=== PATIENT | male | born 1980 | race Caucasian/White ===

== ENCOUNTER 2022-02-13 21:42 | Emergency (ER) | payer OTHER, SELFPAY ==
--- NOTE | ~2022-02-13 | CT_ITS ---
EXAMINATION: CT abdomen pelvis w con DATE: 02/14/2022 00:42 INDICATION: Epigastric abdominal pain, vomiting TECHNIQUE: Computed tomography (CT) of the abdomen and pelvis was performed with 100 CC Omnipaque 350 intravenous contrast. Automated exposure control and iterative reconstruction technique were employe d. Exam dose: 1573.64 mGy-cm total exam DLP. COMPARISON: None. FINDINGS: There calcified pulmonary granulomas in the lower lobes and calcified splenic granulomas, c onsistent with old granulomatous disease. The lung bases are clear of infiltrate or consolidation. Normal heart size. No pericardial or pleural effusion. There is hepatic steatosis. No hepatic or splenic space-occupying mass lesion or splenomegaly. There is very prominent thickening/edema of the gallbladder wall. There is approximately 2 cm stone a t the gallbladder neck. Findings are consistent with acute cholecystitis. The pancreas is unremarkable, without mass lesion or calcification or ductal dilatation. No bile duct dilatation. Bilateral adrenal gland calcifications. No renal mass lesion or urinary tract calculus or hydroureteronephrosis. The urinary bladder and pros garzon gland are unremarkable. No bowel obstruction or intraperitoneal free air. Normal caliber of the abdominal aorta. No intraperitoneal or retroperitoneal or pelvic mass lesion or adenopathy or ascites. Small fat-containing inguinal hernia. Diffuse idiopathic skeletal hyperostosis of the thoracic spine. Moderate degenerative disc disease at L5-S1. Bilateral hip osteoarthritis. No suspicious osteolytic or osteoblastic lesions are noted. IMPRESSION: 2 cm gallstone in gallbladder neck and prominent gallbladder wall thickening/edema, cons istent with acute cholecystitis Hepatic steatosis Bilateral adrenal gland calcifications Reviewed, dictated and finalized at [facility]. Reviewed, dictated and finalized at [facility]. IMPRESSION: 2 cm gallstone in gallbladder neck and prominent gallbladder wall thickening/edema, consistent with acute cholecystitis Hepatic steatosis Bilateral adrenal gland calcifications
[2022-02-13 22:06] VITALS: BP 148/93; PULSE 95; RESP 16; TEMP 36.1; O2SAT 100
--- NOTE | 2022-02-13 22:21 | ED.ABDPAIN ---
HPI - Abdominal Pain General Chief Complaint: Abdominal Pain Stated Complaint: stomach pain, vomiting Time Seen by Provider: 02/13/22 22:21 Source: patient History of Present Illness HPI narrative: 41-year-old male, smoker presents to the ER with 5 hour history of -- epigastric pain. The pain started he had cinnamon and milk. has had prior episodes of epigastric pain. -- Had 4 episodes of vomiting. Vomitus contained brown material. No hematemesis no melena no diarrhea no fever Uses this NSAIDS /ibuprofen on a regular basis. MD elicited complaint: abdominal pain Pertinent past history: none Onset (ago): hour(s) ( Started 5 hours ago) Pain Consistency: constant Location: epigastric Severity: moderate Quality: aching Radiation: epigastric Migration to: no migration Exacerbating factors: nothing Relieving factors: nothing Associated symptoms: denies other symptoms Related Data Home Medications Medication Instructions Recorded Confirmed No Home Medications 02/13/22 02/13/22 Allergies Allergy/AdvReac Type Severity Reaction Status Date / Time Penicillins Allergy Swelling Verified 02/13/22 22:16 Review of Systems Review of Systems: All systems reviewed & are unremarkable except as noted in HPI and below Constitutional: Constitutional: Reports as per HPI and Reports no additional constitutional complaints Eyes: Eyes: Reports as per HPI and Reports no additional eye complaints ENT: Reports system reviewed and no additional complaints, except as documented and Reports as per HPI Cardiovascular: Cardiovascular: Reports as per HPI and Reports no additional cardiovascular complaints Respiratory: Respiratory: Reports as per HPI and Reports no additional respiratory complaints Gastrointestinal: Gastrointestinal: Reports as per HPI, Reports no additional gastrointestinal complaints, Reports abdominal pain and Reports vomiting Comments: epigastric pain Genitourinary: Genitourinary: Reports no additional male genitourinary complaints and Reports as per HPI Musculoskeletal: Musculoskeletal: Reports no additional musculoskeletal complaints and Reports as per HPI Integumentary/Breasts: Skin/Breast: Reports system reviewed and no additional complaints, except as docu and Reports as per HPI Neurologic: Reports system reviewed and no additional complaints, except as documented and Reports as per HPI Psychiatric: Psychiatric: Reports no additional psychiatric complaints and Reports as per HPI Endocrine: Endocrine: Reports no additional endocrine complaints and Reports as per HPI Hematologic/Lymphatic: Hematologic/Lymphatic: Reports no additional hematologic/lymphatic complaints and Reports as per HPI Allergic/Immunologic: Allergic/Immunologic: Reports no additional allergic/immunologic complaints and Reports as per HPI Exam Const: General: no acute distress and alert Orientation/consciousness: patient oriented x3 HENMT: Head: normal to inspection Ears: external ears normal Face and sinus: normal facial exam Mouth: Yes lip normal and Yes moist mucous membranes Eyes: Conjunctivae: conjunctivae normal Pupils: Equal, round and reactive pupils present EOM: EOMs intact bilaterally Neck: Neck: normal visual inspection, no lymphadenopathy and no meningeal signs Chest: Chest palpation & inspection: normal inspection of the chest Resp: Effort & Inspection: normal respiratory effort Auscultation: clear to auscultation bilaterally Cardio: Rate: regular rate Rhythm: regular rhythm GI: GI Palp: Yes Soft to palpation : General: Yes no CVA tenderness Testes: Testes normal Back/Spine/Pelvis: Back: no CVA tenderness Skin: General skin exam: normal color and jaundice Rashes: no rashes Neuro: General: patient oriented x3 and moves all extremities Extrem: General: normal to inspection and no pedal edema Psych: Appearance: grossly normal Mental Status: mental status grossly normal Affect: normal affect T
[2022-02-13 22:30] VITALS: BP 138/88; PULSE 88; RESP 16; O2SAT 98
--- NOTE | 2022-02-13 22:30 | ECG_ITS ---
Measurements Intervals [place] Rate: 87 P: 44 WA: 157 QRS: -4 QRSD: 106 T: 34 QT: 386 QTc: 466 Interpretive Statements SINUS RHYTHM POSSIBLE LEFT VENTRICULAR HYPERTROPHY MINIMAL Q WAVES- HIGH LATERAL LEADS BORDERLINE T WAVE ABNORMALITY- ANT/INF LEADS BASELINE ARTIFACT- II, III, AVL, AVF BORDERLINE ECG Electronically Signed On 02-14-2022 6:52:39 CDT by Philip Nelson D.O.
[2022-02-13 22:43] LABS: Basophils Absolute Auto 0.04 K/mm3 (0.00-0.10); Basophils Percent Auto 0.3 % (0.0-1.0); Eosinophils Absolute Auto 0.01 K/mm3 (0.02-0.50); Eosinophils Percent Auto 0.1 % (1.0-6.0); Hematocrit 47.7 % (40.0-54.0); Hemoglobin 16.3 g/dL (14.0-18.0); Immature Granulocyte Percent A 0.6 % (0.0-0.0); Lymphocytes Absolute Auto 1.44 K/mm3 (1.10-4.50); Mean Corpuscular HGB Conc 34.2 g/dL (32.0-36.0); Mean Corpuscular Hemoglobin 29.4 pg (27.0-31.0); Mean Corpuscular Volume 86.1 fL (78.0-102.0); Mean Platelet Volume 9.8 fl (8.7-11.0); Monocytes Percent Auto 4.4 % (2.0-11.0); Neutrophils Absolute Auto 13.7 K/mm3 (1.7-7.2); Neutrophils Percent Auto 85.6 % (50.0-70.0); Platelet Count Result 357 K/mm3 (150-420); Red Blood Count 5.54 M/mm3 (4.70-6.10); Red Cell Distribution Width 11.9 % (11.6-14.4)
[2022-02-13 23:00] LABS: Alanine Aminotransferase 50 U/L (16-63); Albumin Level 3.8 g/dL (3.4-5.0); Alkaline Phosphatase 106 U/L (46-116); Anion Gap 7 mmol/L (8-16); Aspartate Amino Transferase 23 U/L (15-37); Bilirubin,Total 1.1 mg/dL (0.00-1.00); Blood Urea Nitrogen 11 mg/dL (7-18); Calcium 9.4 mg/dL (8.5-10.1); Carbon Dioxide 27 mmol/L (21-32); Chloride 100 mmol/L (98-108); Estimated CRCL calculation 152 ml/min; Estimated Glomerular Filt Rate > 60; Glucose 125 mg/dL (70-99); Lipase 91 U/L (73-393); Osmolality Calculated 278 mOsm/kg (285-295); Potassium 3.9 mmol/L (3.5-5.1); Sodium 134 mmol/L (136-145); Total Protein 8.2 g/dL (6.4-8.2); Troponin I 12.1 ng/L (0.00-60.4)
[2022-02-13 23:02] LABS: Lactic Acid Reflex 1.1 mmol/L (0.4-2.0)
--- NOTE | 2022-02-13 23:12 | PC.NURSE ---
PT IS CURRENTLY RESTING ON STRETCHER, URINAL PROVIDED. PT DENIES ANY NEEDS OR COMPLAINTS. WILL CONTINUE TO MONITOR.
[2022-02-13 23:15] VITALS: BP 135/81; PULSE 80; RESP 16; O2SAT 100
[2022-02-13 23:21] LABS: Add Urine Microscopic? YES; Appearance Urine Cloudy (Clear); Bilirubin Urine Negative (Negative); Blood Urine Negative (Negative); Color Urine Yellow (Yellow); Glucose Urine UA Negative (Negative); Ketones Urine Negative (Negative); Leukocyte Esterase Ur Negative (Negative); Nitrate Urine Negative (Negative); Protein Urine Negative (Negative); Specific Grav Ur 1.015 (1.010-1.020)
[2022-02-13 23:26] LABS: Amorphous Sediment Urine Heavy; Bacteria Urine Trace /hpf; RBC Urine 0-2 /hpf (0-2); Squamous Epithelial Cell Urine Rare /hpf (Few); WBC Urine 0-3 /hpf (0-3)
[2022-02-14] MEDS: LACTATED RINGERS 1,000 ML 999 ML IV CONT (00:03)
[2022-02-14 00:15] VITALS: BP 145/88; PULSE 82; RESP 16; O2SAT 98
--- NOTE | 2022-02-14 00:50 | PC.NURSE ---
PT IS CURRENTLY SLEEPING WITHOUT DISTRESS. WILL AWAIT CT RESULTS.
[2022-02-14 01:30] VITALS: BP 142/88; PULSE 83; RESP 16; TEMP 36.8; O2SAT 100
[2022-02-14] MEDS: metroNIDAZOLE 500 MG/ISO 100ML 500 MG/100 ML BAG 100 MG IVPB (01:46)
[2022-02-14 02:24] VITALS: BP 143/94; PULSE 80; RESP 16; O2SAT 99
[2022-02-14 02:47] VITALS: BP 143/95; PULSE 83; RESP 16; TEMP 36.7; O2SAT 99
[2022-02-14] MEDS: levoFLOXacin 500 MG/D5W 100 ML 500 MG/100 ML BAG 100 MG IVPB (02:49)
--- NOTE | 2022-02-14 02:55 | PC.NURSE ---
EMS NOTIFIED FOR TRANSFER AT 0250. PT HAS SIGNED PAPERWORK AND IS AGREEABLE TO BE TRANSFERRED TO [facility]. REPORT HAS BEEN CALLED.
--- NOTE | 2022-02-14 03:23 | PC.NURSE ---
LEVOQUIN WAS INFUSING AT DISPO
== END 2022-02-14 03:10 | disposition short-term general hospital (02) ==
PROVIDERS: Emergency Provider Internal Medicine Critical Care Medicine
DX: K81.9 Cholecystitis, unspecified (principal); K76.0 Fatty (change of) liver, not elsewhere classified; R16.1 Splenomegaly, not elsewhere classified
CPT/HCPCS: 36415; 74177; 80053; 81001; 83605; 83690; 84484; 85025; 93005; 96361; 96365; 96375; 99285; J1956; J7120; Q9967

== ENCOUNTER 2022-02-14 03:43 | Inpatient (IN) | payer OTHER, SELFPAY ==
--- NOTE | ~2022-02-14 | XR_ITS ---
EXAMINATION: XR cholangiogram surg 1st inj DATE: 02/15/2022 12:35 INDICATION: Intraoperative evaluation during laparoscopic cholecystectomy TECHNIQUE: Multiple fluoroscopic images of the right upper quadrant were obtained during intraoperati ve cholangiography. A total of 110 fluoroscopic images were obtained. The amount of fluoroscopy time used during this procedure was 0.3 minutes. COMPARISON: CT dated 02/14/2022 FINDINGS: Cannulation of the cystic duct demonstrates filling of a normal appearing common bile duct which tapers smoothly distally with no intraluminal filling defects or stricture. Contrast extends i nto the duodenum and central intrahepatic biliary tree which also appears normal. There is also reflu x of a small amount of contrast into the normal-appearing distal main pancreatic duct. IMPRESSION: 1. No filling defects or strictures within the common bile duct or contrast opacified central biliary tree. Reviewed, dictated and finalized at location [facility]. IMPRESSION: 1. No filling defects or strictures within the common bile duct or contrast opa cified central biliary tree.
--- NOTE | 2022-02-14 03:54 | ADMGEN ---
This patient, Davion Norman, was admitted to Medical Room 261-01. Patient/family oriented to hospital policies and general routines including ID bracelet, bed and alarms, visiting hours, pain management, procedures, bathroom and other care routines, personal items, smoking policy, room service/diet, and visiting hours. Information on how to activate the Rapid Response Team has been discussed. Patient/Family are encouraged to report perceived risks to care and to ask questions if they do not understand what they are told or what they should do.
[2022-02-14] MEDS: SODIUM CHLORIDE 0.9% IV 1,000 ML 100 ML (04:00)
--- NOTE | 2022-02-14 04:06 | ECG_ITS ---
Measurements Intervals [place] Rate: 108 P: 31 [place]: 128 QRS: -13 QRSD: 91 T: 99 QT: 259 QTc: 348 Interpretive Statements SINUS TACHYCARDIA LEFT VENTRICULAR HYPERTROPHY AND ST-T CHANGE BORDERLINE T WAVE ABNORMALITY- ANT/INF LEADS ABNORMAL ECG Electronically Signed On 02-14-2022 9:10:00 CDT by Philip Nelson D.O.
[2022-02-14 04:13] VITALS: BP 145/96; PULSE 108; RESP 21; TEMP 36.3; O2SAT 100; BMI 47.2
[2022-02-14] MEDS: MORPHINE SULFATE (*CRX) 4 MG/ML INJ IV PUSH ×4 (04:19→19:57)
[2022-02-14] MEDS: SODIUM CHLORIDE 0.9% IV 1,000 ML 100 ML IV CONT ×2 (04:20→15:28)
[2022-02-14] MEDS: METOCLOPRAMIDE HCL INJ 10 MG/2 ML VIAL IV PUSH ×2 (04:52→15:28)
[2022-02-14 06:13] LABS: Basophils Absolute Auto 0.1 K/mm3 (0.0-0.1); Basophils Percent Auto 0.3 % (0.2-1.2); Eosinophils Absolute Auto 0.1 K/mm3 (0-0.3); Eosinophils Percent Auto 0.6 % (0-4.4); Hematocrit 46.6 % (42.0-52.0); Hemoglobin 16.5 g/dL (14.0-18.0); Immature Granulocyte Absolute 0.13 K/mm3 (0.00-0.031); Immature Granulocyte Percent A 0.8 % (0-0.5); Lymphocytes Absolute Auto 2.23 K/mm3 (0.9-3.2); Lymphocytes Percent Auto 13.6 % (18.3-44.2); Mean Corpuscular HGB Conc 35.4 g/dl (32-36); Mean Corpuscular Volume 84.7 fl (80-100); Mean Platelet Volume 9.7 fl (7.4-10.4); Monocytes Absolute Auto 1.4 K/mm3 (0.1-0.6); Monocytes Percent Auto 8.4 % (2.6-8.5); Neutrophils Absolute Auto 12.5 K/mm3 (1.3-6.7); Neutrophils Percent Auto 76.3 % (45.5-73.1); Platelet Count Result 345 k/mm3 (150-375); White Blood Count 16.4 K/mm3 (4.5-10.0)
[2022-02-14 06:26] LABS: Alanine Aminotransferase 42 U/L (6-50); Albumin Level 4.1 g/dL (3.5-5.1); Alkaline Phosphatase 99 U/L (38-126); Anion Gap 8 mmol/L (8-16); Aspartate Amino Transferase 41 U/L (17-59); Bilirubin,Total 1.4 mg/dL (0.2-1.3); Blood Urea Nitrogen 9 mg/dL (9-20); Carbon Dioxide 25 mmol/L (22-30); Chloride 102 mmol/L (98-107); Estimated CRCL calculation 165 ml/min; Estimated Glomerular Filt Rate > 60; Glucose 105 mg/dL (65-110); Potassium 3.8 mmol/L (3.4-5.0); Sodium 135 mmol/L (137-145)
[2022-02-14 08:00] VITALS: BP 139/81; PULSE 109; RESP 20; TEMP 36.8; O2SAT 96
--- NOTE | 2022-02-14 09:14 | PM.IMHP ---
H&P: HPI History of Present Illness Date/Time: 02/14/22 09:14 Chief Complaint: Epigastric abdominal pain Narrative: This is a 41-year-old obese male presented to the emergency department in [place] with complaints of epigastric abdominal pain. He reports a sudden onset of pain shortly after eating cinnamon rolls yesterday afternoon around 4:00 p.m.. He reportedly has had this similar pain multiple times over the past year, but typically it is more mild and resolves with time. Yesterday, the pain continued to worsen and he developed nausea with vomiting. No bloody or coffee-ground emesis. Due to the unrelenting pain, he came into the ER for evaluation. CT scan of abdomen and pelvis showed a 2 cm gallstone in the neck of the gallbladder with gallbladder wall thickening and edema, consistent with acute cholecystitis. Incidentally noted was hepatic steatosis and bilateral adrenal gland calcifications. Labs showed a white blood cell count of 16,000, total bilirubin 1.1, but otherwise normal LFTs. He received 1 dose of IV Levaquin and IV Flagyl while in the ER around 2:00 a.m.. [place] [facility] called our service and the patient was directly transferred to [facility] for evaluation of acute cholecystitis. The patient is now seen on the medical floor. He continues to have epigastric abdominal pain. No other complaints at this time. To note, he is a smoker and also smokes amphetamines. He reports using amphetamines a few times a week with his last use 4 days ago. He denies any symptoms of withdrawal at this time. Review of Systems Review of Systems: All systems reviewed & are unremarkable except as noted in HPI and below Constitutional: Constitutional: Reports as per HPI, Denies chills, Denies fatigue and Denies fever(s) Eyes: Eyes: Reports no additional eye complaints and Denies change in vision ENT: Reports system reviewed and no additional complaints, except as documented and Reports Normal hearing present Cardiovascular: Cardiovascular: Reports no additional cardiovascular complaints, Denies chest pain and Denies leg edema Respiratory: Respiratory: Reports no additional respiratory complaints, Denies cough and Denies dyspnea Gastrointestinal: Gastrointestinal: Reports as per HPI, Reports no additional gastrointestinal complaints and Reports abdominal pain Genitourinary: Genitourinary: Reports no additional male genitourinary complaints, Denies hematuria and Denies dysuria Musculoskeletal: Musculoskeletal: Reports no additional musculoskeletal complaints, Denies abnormal gait and Denies deformity Integumentary/Breasts: Skin/Breast: Denies wounds and Denies jaundice Neurologic: Reports system reviewed and no additional complaints, except as documented, Denies dizziness, Denies focal weakness, Denies numbness and Denies tingling PMFSH Past Medical History Medical History Methamphetamine use Tobacco abuse Surgical History Surgical History History of surgery on arm as a child Family History Family History Mother Cerebrovascular accident Diabetes mellitus Hypertension Social History Social History Smoking packs per day: 0.5 Smoking cigarettes per day: 10.0 Years smoked: 20 Smoking pack-years: 10.00 Smoking status: Current every day smoker Alcohol intake: never Substance use: current Substance use type: methamphetamine Other substance usage details: Uses a few times per week Last use: 4 days ago Occupation/Education: occupation Additional occupation/education comments: drug abuse worker Gender identity (if verbalized by the patient): Male Spiritual care concerns: No Meds Home Medications and Allergies Home Medications Medication Instructions Recorded Confirm
[2022-02-14] MEDS: ENOXAPARIN 40 MG/0.4 ML SYRINGE SUB-Q (09:15)
[2022-02-14] MEDS: NICOTINE (*PBKC) 14 MG PATCH 1 PATCH TRANSDERM (09:15)
--- NOTE | 2022-02-14 11:25 | PCDIET ---
Nutrition education on low fat diet. Pt states understanding. Thank you for the consult.
[2022-02-14 12:00] VITALS: BP 130/82; PULSE 104; RESP 20; TEMP 36.8; O2SAT 99
[2022-02-14] MEDS: metroNIDAZOLE 500 MG/ISO 100ML 500 MG/100 ML BAG 100 MG IVPB ×2 (12:09→18:03)
[2022-02-14 16:00] VITALS: BP 134/87; PULSE 103; RESP 20; TEMP 36.8; O2SAT 98
[2022-02-14 20:00] VITALS: BP 126/87; PULSE 103; PULSE 109; RESP 20; RESP 21; TEMP 36.5; O2SAT 100; O2SAT 98
[2022-02-15] VITALS (13 sets, daily range): BP systolic 103–146; BP diastolic 51–97; PULSE 87–118; RESP 16–32; TEMP 36.4–37.1; O2SAT 92–98
[2022-02-15] MEDS: ceFAZolin 2 GM/D5W 50 ML 2 GM/50 ML BAG IVPB ×3 (00:02→16:29)
[2022-02-15] MEDS: MORPHINE SULFATE (*CRX) 4 MG/ML INJ IV PUSH ×2 (00:02→02:32)
[2022-02-15] MEDS: metroNIDAZOLE 500 MG/ISO 100ML 500 MG/100 ML BAG 100 MG IVPB ×3 (02:26→17:21)
[2022-02-15] MEDS: SODIUM CHLORIDE 0.9% IV 1,000 ML 100 ML IV CONT ×2 (02:26→15:44)
[2022-02-15] MEDS: ENOXAPARIN 40 MG/0.4 ML SYRINGE SUB-Q (07:37)
[2022-02-15] MEDS: CHLORHEXIDINE GLUCONATE 4% SOL 120 ML BTL 1 APPLIC TOPICAL (07:38)
[2022-02-15 08:21] LABS: Alanine Aminotransferase 33 U/L (6-50); Albumin Level 4.1 g/dL (3.5-5.1); Alkaline Phosphatase 101 U/L (38-126); Anion Gap 8 mmol/L (8-16); Aspartate Amino Transferase 27 U/L (17-59); Bilirubin,Total 2.8 mg/dL (0.2-1.3); Blood Urea Nitrogen 7 mg/dL (9-20); Calcium 8.5 mg/dL (8.4-10.2); Carbon Dioxide 22 mmol/L (22-30); Chloride 102 mmol/L (98-107); Estimated CRCL calculation 146 ml/min; Estimated Glomerular Filt Rate > 60; Glucose 107 mg/dL (65-110); Lipase 122 U/L (23-300); Potassium 3.6 mmol/L (3.4-5.0); Sodium 132 mmol/L (137-145)
[2022-02-15] MEDS: ACETAMINOPHEN 500 MG TABLET 1000 MG PO (08:21)
[2022-02-15 08:23] LABS: Basophils Absolute Auto 0.1 K/mm3 (0.0-0.1); Basophils Percent Auto 0.4 % (0.2-1.2); Eosinophils Absolute Auto 0.4 K/mm3 (0-0.3); Eosinophils Percent Auto 2.8 % (0-4.4); Hematocrit 46.1 % (42.0-52.0); Hemoglobin 16.3 g/dL (14.0-18.0); Immature Granulocyte Absolute 0.12 K/mm3 (0.00-0.031); Immature Granulocyte Percent A 0.8 % (0-0.5); Lymphocytes Absolute Auto 2.12 K/mm3 (0.9-3.2); Lymphocytes Percent Auto 13.4 % (18.3-44.2); Mean Corpuscular HGB Conc 35.4 g/dl (32-36); Mean Corpuscular Hemoglobin 29.9 pg (26-34); Mean Corpuscular Volume 84.4 fl (80-100); Mean Platelet Volume 9.8 fl (7.4-10.4); Monocytes Absolute Auto 1.9 K/mm3 (0.1-0.6); Monocytes Percent Auto 11.8 % (2.6-8.5); Neutrophils Absolute Auto 11.3 K/mm3 (1.3-6.7); Neutrophils Percent Auto 70.8 % (45.5-73.1); Platelet Count Result 350 k/mm3 (150-375); Red Blood Count 5.46 M/mm3 (4.6-6.20); Red Cell Distribution Width 12.3 % (11.5-14.5); White Blood Count 15.9 K/mm3 (4.5-10.0)
[2022-02-15] MEDS: KETOROLAC 15 MG/ML VIAL (*BKC) IV PUSH (08:23)
--- NOTE | 2022-02-15 08:41 | WPDANESEPPF ---
Anes - Initial Pre Proc Eval Procedure: Operation Date: 02/15/22 09:00 Proposed Procedures p Laparoscopic Cholecystectomy, Possible Intra Operative Cholangiogram, Possible Open - Isaac Castro MD Date/Time: 02/15/22 08:41 Surgeon: Isaac Castro MD Pre Op Diagnosis: Acute Cholecysititis with cholelithiasis Patient Data Age: 41 Gender: M Height: 1.73 m Weight: 141 kg Last Vital Signs Temp 36.6 C 02/15/22 08:08 Pulse 118 H 02/15/22 08:08 Resp 16 02/15/22 08:08 BP 122/83 02/15/22 08:08 Pulse Ox 98 02/15/22 08:08 Allergies Allergy/AdvReac Type Severity Reaction Status Date / Time Penicillins Allergy Swelling Verified 02/13/22 22:16 Home Medications Medication Instructions Recorded Confirmed Type No Home Medications 02/13/22 02/14/22 History Laboratory Tests 02/15/22 02/15/22 07:56 07:56 WBC 15.9 K/mm3 H K/mm3 (4.5-10.0) RBC 5.46 M/mm3 M/mm3 (4.6-6.20) Hgb 16.3 g/dL g/dL (14.0-18.0) Hct 46.1 % % (42.0-52.0) MCV 84.4 fl fl (80-100) MCH 29.9 pg pg (26-34) MCHC 35.4 g/dl g/dl (32-36) RDW 12.3 % % (11.5-14.5) Plt Count 350 k/mm3 k/mm3 (150-375) MPV 9.8 fl fl (7.4-10.4) Immature Gran % (Auto) 0.8 % H % (0-0.5) Neut % (Auto) 70.8 % % (45.5-73.1) Lymph % (Auto) 13.4 % L % (18.3-44.2) [place] % (Auto) 11.8 % H % (2.6-8.5) Eos % (Auto) 2.8 % % (0-4.4) Baso % (Auto) 0.4 % % (0.2-1.2) Lymph # (Auto) 2.12 K/mm3 K/mm3 (0.9-3.2) [place] # (Auto) 1.9 K/mm3 H K/mm3 (0.1-0.6) Eos # (Auto) 0.4 K/mm3 H K/mm3 (0-0.3) Baso # (Auto) 0.1 K/mm3 K/mm3 (0.0-0.1) Abs Immat Gran (auto) 0.12 K/mm3 H K/mm3 (0.00-0.031) Absolute Neuts (auto) 11.3 K/mm3 H K/mm3 (1.3-6.7) Absolute Nucleated RBC 0.0 K/mm3 K/mm3 (0.0-0.012) Nucleated RBC % 0.0 % % (0.0-0.2) Sodium 132 mmol/L L mmol/L (137-145) Potassium 3.6 mmol/L mmol/L (3.4-5.0) Chloride 102 mmol/L mmol/L (98-107) Carbon Dioxide 22 mmol/L mmol/L (22-30) Anion Gap 8 mmol/L mmol/L (8-16) BUN 7 mg/dL L mg/dL (9-20) Creatinine 0.80 mg/dL mg/dL (0.7-1.3) Estim Creat Clear Calc 146 ml/min ml/min Estimated GFR > 60 (59 - ) Glucose 107 mg/dL mg/dL (65-110) Calcium 8.5 mg/dL mg/dL (8.4-10.2) Total Bilirubin 2.8 mg/dL H mg/dL (0.2-1.3) AST 27 U/L U/L (17-59) ALT 33 U/L U/L (6-50) Alkaline Phosphatase 101 U/L U/L (38-126) Total Protein 8.0 g/dL g/dL (6.3-8.2) Albumin 4.1 g/dL g/dL (3.5-5.1) Lipase 122 U/L U/L (23-300) Patient hx anesthesia problems: none Family hx anesthesia problems: none Results Review: All pre-operative results and documents have been reviewed as part of the pre-operative evaluation. [facility] Past Medical History Medical History (Updated 02/15/22 @ 08:42 by Brayan Holt MD) Methamphetamine use Morbid obesity Tobacco abuse Surgical History Surgical History History of surgery on arm as a child Family History Family History Mother Cerebrovascular accident Diabetes mellitus Hypertension Social History Social History Smoking packs per day: 0.5 Smoking cigarettes per day: 10.0 Years smoked: 20 Smoking pack-years: 10.00 Smoking status: Current every day smoker Alcohol intake: never Substance use: current Substance use type: methamphetamine Other substance usage details: Uses a few times per week Last use: 4 days ago Occupation/Education: occupation 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
[2022-02-15] MEDS: LACTATED RINGERS 1,000 ML 30 ML IV CONT ×2 (08:54→14:28)
--- NOTE | 2022-02-15 09:05 | WPDHPUPDATE1 ---
History and Physical Update Update Date/Time: 02/15/22 09:05 History and Physical has been reviewed, including an updated exam of the patient. There are changes in the patient's condition. pt's WBC is still up and now Tbili is up to 2.8 so will try to do a intraop cholangiogram during the surgery today. Risks, benefits, and alternatives have been discussed and questions answered. Patient agrees to proceed with procedure.
[2022-02-15] MEDS: LIDO 2%/EPINEPHRINE 1:100,000 20 ML VIAL INFILTRATE (11:46)
--- NOTE | 2022-02-15 14:17 | W.PM.PROC2 ---
Procedure Note - Detailed Date of Procedure 02/15/22 Pre-op Diagnosis Acute Cholecysititis with cholelithiasis Post-op Diagnosis Same Procedure Performed Laparoscopic cholecystectomy with intraoperative cholangiogram Surgeon Isaac Castro MD [employer] FRANKIE Kuhn, [place] 1st assist Anesthesia General Indications Patient presented which acute cholecystitis with cholelithiasis by CT scan (see report). I discussed the risks, benefits, possible complications of both antibiotic treatment and surgical intervention. After thorough discussion and the fact that the patient was still having pain this morning and had elevated bilirubin it was felt that he would be best served by early laparoscopic cholecystectomy if possible. He understands that we may have to convert to an open procedure. Findings Patient very inflamed thickened gallbladder with significant omental adhesions covering almost all of the gallbladder upon entry into the abdomen. We had difficulty removing the gallbladder from the abdomen because of the significant amount of stone and sludge material within the gallbladder itself. Patient had hydrops the gallbladder so we could not grasp it. I therefore had to do an aspiration of it in order to be able to perform the surgery. Some of this fluid was sent for Gram stain and culture. Description of Procedure Procedure Details: Patient was seen preoperatively in the holding area and risks, benefits and alternatives confirmed. Patient was taken to the operating room and general anesthesia was induced. A time out was then preformed with the surgery team confirming patient and site of surgery. The abdomen was prepped and draped in the usual sterile fashion. Local anesthetic using 2% xylocaine with epinephrine was infiltrated into the site just above the umbilicus where we were going to make the incision and also into each of the port sites before placing the ports. Incision was made just above the umbilicus. Two stay sutures of O- Vicryl were used to elevate the mid-line fascia beneath the umbilicus and a small incision was made under direct vision. The peritoneum was entered. The 130 mm long 12 mm Wallace cannula was introduced under direct vision. First under low flow and then under high flow the abdomen was insufflated with carbon dioxide never exceeding a pressure of 14. Two 5 mm trocars and one other 12mm trocar was then introduced under direct vision. The following trocars were introduced under direct vision: a 12 mm in the epigastrium and two 5 mm trocars along the right costal margin. There were significant adhesions of the omentum to the underside of the gallbladder and these were taken down with blunt and sharp dissection. Bovie cautery was used for hemostasis. The gall bladder was grasped and the cystic duct and artery were dissected free and I carefully identified a window of safety with only two other structures in the area being the cystic duct and the cystic artery. I then used a 10 mm endo-clip signal and communications maintainer to place 2 clips on the patient's side 1 on the gallbladder side on the cystic artery and just 1 clip on the gallbladder side of the cystic duct. A small hole was made in the cystic duct with endoshears and a cholagio-cath introduced. This was held in place with a single 10 mm clip. A cholangiogram was obtained revealing free flow into the cystic duct, common bile duct, common hepatic, right and left hepatic ducts with free flow into the duodenum with no filling defects in the intra nor extrahepatic biliary tree and no dilation. The catheter was removed and the cystic duct was clipped with a 5 mm endoclip-signal and communications maintainer placing 2 clips on the patient's side of the cystic duct. The cystic duct was then transected. The cystic artery was also transected at this point. The gall bladder was removed using electrocautery and then removed in an endobag via the umbilical incision. Because the gallbladder was distended with stones and other debris it wou
[2022-02-15] MEDS: fentaNYL CITRATE INJ (*CRX) 100 MCG/2 ML VIAL 25 MCG IV PUSH (14:46)
[2022-02-15] MEDS: NICOTINE (*PBKC) 14 MG PATCH 1 PATCH TRANSDERM (15:44)
[2022-02-15] MEDS: HYDROcodone/acetaminophen (*CRX) 7.5-325 MG TABLET 1 TAB PO ×2 (15:49→19:39)
[2022-02-15] MEDS: SENNA/DOCUSATE SODIUM TABLET 2 TAB PO (20:26)
[2022-02-16] VITALS: BP 121/68; PULSE 96; RESP 20; TEMP 36.6; O2SAT 98
[2022-02-16] MEDS: HYDROcodone/acetaminophen (*CRX) 7.5-325 MG TABLET 1 TAB PO (00:07)
[2022-02-16] MEDS: ceFAZolin 2 GM/D5W 50 ML 2 GM/50 ML BAG IVPB ×2 (00:07→08:54)
[2022-02-16] MEDS: metroNIDAZOLE 500 MG/ISO 100ML 500 MG/100 ML BAG 100 MG IVPB ×2 (02:42→11:31)
[2022-02-16] MEDS: SODIUM CHLORIDE 0.9% IV 1,000 ML 100 ML IV CONT (02:44)
[2022-02-16] MEDS: HYDROcodone/acetaminophen (*CRX) 5-325 MG TABLET 1 TAB PO ×2 (02:44→09:01)
[2022-02-16 04:00] VITALS: BP 128/72; PULSE 96; RESP 20; TEMP 36.3; O2SAT 98
[2022-02-16 05:30] LABS: Hematocrit 41.8 % (42.0-52.0); Mean Corpuscular HGB Conc 33.5 g/dl (32-36); Mean Corpuscular Hemoglobin 29.6 pg (26-34); Mean Corpuscular Volume 88.4 fl (80-100); Platelet Count Result 284 k/mm3 (150-375); Red Blood Count 4.73 M/mm3 (4.6-6.20); Red Cell Distribution Width 12.2 % (11.5-14.5); White Blood Count 16.8 K/mm3 (4.5-10.0)
[2022-02-16 05:49] LABS: Alanine Aminotransferase 73 U/L (6-50); Albumin Level 3.8 g/dL (3.5-5.1); Alkaline Phosphatase 85 U/L (38-126); Anion Gap 6 mmol/L (8-16); Aspartate Amino Transferase 84 U/L (17-59); Bilirubin,Total 1.2 mg/dL (0.2-1.3); Blood Urea Nitrogen 8 mg/dL (9-20); Calcium 8.3 mg/dL (8.4-10.2); Carbon Dioxide 24 mmol/L (22-30); Chloride 104 mmol/L (98-107); Estimated CRCL calculation 131 ml/min; Estimated Glomerular Filt Rate > 60; Glucose 100 mg/dL (65-110); Potassium 3.7 mmol/L (3.4-5.0); Sodium 134 mmol/L (137-145)
[2022-02-16] MEDS: ENOXAPARIN 40 MG/0.4 ML SYRINGE SUB-Q (08:54)
[2022-02-16] MEDS: NICOTINE (*PBKC) 14 MG PATCH 1 PATCH TRANSDERM (08:54)
[2022-02-16 09:00] VITALS: O2SAT 94
--- NOTE | 2022-02-16 09:23 | WPDANESPN ---
Anes - Prog Note Post-Op Date/Time: 02/16/22 09:23 Cardiovascular status: normal Respiratory status: normal Airway patency: baseline Mental status: baseline Post-Op hydration status: normal Vital Signs: Last Vital Signs Temp 36.3 C L 02/16/22 04:00 Pulse 96 02/16/22 04:00 Resp 20 02/16/22 04:00 BP 128/72 02/16/22 04:00 Pulse Ox 98 02/16/22 04:00 Pain Score (VAS): 0 I/O: Intake & Output 02/15/22 02/16/22 02/16/22 23:59 07:59 15:59 Intake Total 660 1900 110 Output Total 5 Balance 660 1895 110 Laboratory Tests 02/16/22 04:51 02/16/22 04:51 02/16/22 02/16/22 04:51 04:51 WBC 16.8 H RBC 4.73 Hgb 14.0 Hct 41.8 L MCV 88.4 MCH 29.6 MCHC 33.5 RDW 12.2 Plt Count 284 MPV 10.0 Sodium 134 L Potassium 3.7 Chloride 104 Carbon Dioxide 24 Anion Gap 6 L BUN 8 L Creatinine 0.90 Estim Creat Clear Calc 131 Estimated GFR > 60 Glucose 100 Calcium 8.3 L Total Bilirubin 1.2 Direct Bilirubin 0.0 AST 84 H ALT 73 H Alkaline Phosphatase 85 Total Protein 7.0 Albumin 3.8 Post-procedural complaints: none Patient Feedback: Patient satisfied with anesthetic care.
[2022-02-16 09:25] VITALS: BP 126/74; PULSE 110; RESP 14; TEMP 36.2; O2SAT 97
--- NOTE | 2022-02-16 10:55 | PM.DS ---
DS: Admitting Diagnosis Discharge Date 02/16/2022 Admitting Diagnosis acute cholecystitis with cholelithiasis DS: Discharge Diagnosis Discharge Diagnosis (1) Cholelithiasis and acute cholecystitis with obstruction: Onset Date: ~02/2022 Code(s): K80.01 - Calculus of gallbladder with acute cholecystitis with obstruction Status: Acute Assessment and Plan: this was the main reason for the patient's hospitalization. He was initially under observation. However, we admitted him after he state to overnight. He had acute cholecystitis with cholelithiasis it with a very inflamed gallbladder at the time of surgery and needed further antibiotics. (2) Morbid obesity with BMI of 45.0-49.9, adult: Onset Date: Unknown Code(s): E66.01 - Morbid (severe) obesity due to excess calories; Z68.42 - Body mass index [BMI] 45.0-49.9, adult Status: Acute Assessment and Plan: Will encourage low-fat diet upon discharge (3) Methamphetamine use: Onset Date: Unknown Code(s): F15.10 - Other stimulant abuse, uncomplicated Status: Acute Assessment and Plan: patient had no signs of withdrawal during his hospital stay. He had p.r.n. lorazepam ordered if he needed it for anxiety but item doing believe he required it. He has already contacted his previous therapist with [place] [facility] and will be following up with them as an outpatient to again try to stay off methamphetamines for the future. (4) Tobacco abuse: Onset Date: Unknown Code(s): Z72.0 - Tobacco use Status: Acute Assessment and Plan: Encouraged patient to stop smoking. He has done okay without smoking while in the hospital. He knows that he can get [id number] nicotine gum or patches to try to proceed with cessation of smoking. He understands that he will have poorer wound healing if he goes back to smoking. DS: Summary Hospital Course Reason for hospitalization: Acute cholecystitis with cholelithiasis and constant abdominal pain Hospital Course: patient had a fairly unremarkable hospital course. He had continuous pain with his acute cholecystitis. CT scan showed definite thickening of the gallbladder wall and significant stones in the gallbladder. (See report) therefore we scheduled him as soon as possible and started him on antibiotics. He had uneventful but difficult laparoscopic cholecystectomy on 02/15/2022. His white count was a little bit up on the postop day 1 but otherwise he was doing all right. His pain and shifted to the incisions. He was continued on IV antibiotics overnight and we will be sending him home on Cipro for 4 days. Time spent discussing smoking cessation with patient: 3 to 10 minutes Status at Discharge Functional status at discharge: independent ambulation Overall status at discharge: patient is not back to baseline ( Still moving slowly but improving.) Time Spent with Patient Time attestation: Total time spent providing and/or coordinating discharge services: Time spent: Less than 30 minutes Specific discharge activities: See discharge instructions Instructed patient on taking 4 more days of oral antibiotics. Patient will follow-up in the office in 2 weeks. DS: Data Data Completed and Pending Pending studies at discharge: Pending at discharge 02/15/22 11:29 Surgical [PTH] Routine Labs on day of discharge: Labs from last 24 hours 02/16/22 02/16/22 04:51 04:51 WBC 16.8 H RBC 4.73 Hgb 14.0 Hct 41.8 L MCV 88.4 MCH 29.6 MCHC 33.5 RDW 12.2 Plt Count 284 MPV 10.0 Sodium 134 L Potassium 3.7 Chloride 104 Carbon Dioxide 24 Anion Gap 6 L BUN 8 L Creatinine 0.90 Estim Creat Clear Calc 131 Estimated GFR > 60 Glucose 100 Calcium 8.3 L Total Bilirubin 1.2 Direct Bilirubin 0.0 AST 84 H ALT 73 H Alkaline Phosphatase 85 Total Protein 7.0 Albumin 3.8
== END 2022-02-16 13:20 | disposition home or self-care (01) | DRG 263 ==
PROVIDERS: Admitting Provider Surgery; PCP Internal Medicine Critical Care Medicine; Visit Provider Surgery
PROC: 0FT44ZZ Resection of Gallbladder, Percutaneous Endoscopic Approach (ICD-10-PCS; CPT 47562; principal; 2022-02-15 09:00)
DX: K80.01 Calculus of gallbladder with acute cholecystitis with obstruction (principal); K82.1 Hydrops of gallbladder; E66.01 Morbid (severe) obesity due to excess calories; Z68.42 Body mass index [BMI] 45.0-49.9, adult; K76.0 Fatty (change of) liver, not elsewhere classified; F15.10 Other stimulant abuse, uncomplicated; F17.210 Nicotine dependence, cigarettes, uncomplicated
CPT/HCPCS: 36415; 74300; 80048; 80053; 80076; 83690; 83735; 85025; 85027; 87070; 87075; 87205; 88304; 93005; 96361; 96365; 96366; 96367; 96372; 96375; 96376; A9270; C1713; G0378; G0379; J0330; J0690; J1100; J1650; J1885; J2250; J2270; J2405; J2704; J2710; J2765; J3010; J7030; J7120; Q9966

== ENCOUNTER 2022-05-03 14:33 | Emergency (ER) | payer OTHER, SELFPAY ==
--- NOTE | 2022-05-03 14:35 | ED.WEAKNESS ---
HPI - Weakness General Chief complaint: Dizziness Stated complaint: ambulance Source: patient, EMS and RN notes reviewed Mode of arrival: ambulatory Limitations: no limitations History of Present Illness HPI Narrative: patient's car broke down. He was trying to walk back to the car lot. He had been walking for approximately an hour when he became overheated and tired called 911 because he was not feeling good. Complaint: generalized weakness Onset (ago): hour(s) (1) Duration: constant Location: generalized Migration: none Severity: severe Relieving factors: rest Exacerbating factors: exertion Associated symptoms: denies other symptoms Related Data Home Medications Medication Instructions Recorded Confirmed No Home Medications 05/03/22 05/03/22 Allergies Allergy/AdvReac Type Severity Reaction Status Date / Time Penicillins Allergy Swelling Verified 05/03/22 14:48 Review of Systems Review of Systems: All systems reviewed & are unremarkable except as noted in HPI and below PMFSH Past Medical History Medical History Cholelithiasis and acute cholecystitis with obstruction (~02/2022) Methamphetamine use (Unknown) Morbid obesity Morbid obesity with BMI of 45.0-49.9, adult (Unknown) Tobacco abuse (Unknown) Surgical History Surgical History History of surgery on arm as a child Family History Family History Mother Cerebrovascular accident Diabetes mellitus Hypertension Social History Social History Smoking packs per day: 0.5 Smoking cigarettes per day: 10.0 Years smoked: 20 Smoking pack-years: 10.00 Smoking status: Current every day smoker Alcohol intake: never Substance use: current Substance use type: methamphetamine Other substance usage details: Uses a few times per week Last use: 4 days ago Additional occupation/education comments: sheet ironworker Gender identity (if verbalized by the patient): Male Spiritual care concerns: No Exam Const: General: no acute distress, alert, diaphoretic and ill appearing acutely Nutritional Appearance: well nourished and obese morbidly obese Orientation/consciousness: patient oriented x3 Limitations: no limitations HENMT: Head: normal to inspection Ears: external ears normal Mouth: Yes dry mucous membranes Eyes: Conjunctivae: conjunctivae normal Pupils: Equal, round and reactive pupils present EOM: EOMs intact bilaterally Neck: Neck: normal visual inspection Resp: Effort & Inspection: normal respiratory effort Auscultation: clear to auscultation bilaterally Cardio: Rate: tachycardic Rhythm: regular rhythm GI: GI Palp: Yes Soft to palpation and No Tenderness to palpation present (GI) Auscultation: normal bowel sounds Back/Spine/Pelvis: Cervical Spine: cervical ROM normal Thoracic/Lumbar Spine: thoraco-lumbar ROM normal Skin: General skin exam: normal color Rashes: no rashes Wounds: no wounds Neuro: General: patient oriented x3, moves all extremities, no focal motor deficits and CN's II-XI intact bilaterally Speech: normal speech Extrem: General: normal to inspection and no clubbing, cyanosis or edema Psych: Mental Status: mental status grossly normal Affect: normal affect Attitude: cooperative Course Course Emergency Course: Patient is given 2 L of fluid feels much better. He was able to urinate in the department without difficulty. Vital Signs Vital signs: Vital Signs Temperature 36.6 C 05/03/22 14:41 Pulse Rate 121 H 05/03/22 14:41 Respiratory Rate 16 05/03/22 14:41 Blood Pressure 133/87 05/03/22 14:41 Pulse Oximetry 98 05/03/22 14:41 Temperature 36.6 C 05/03/22 17:01 Pulse Rate 100 05/03/22 17:01 Respiratory Rate 18 05/03/22 17:01 Blood Pressure 113/
[2022-05-03 14:41] VITALS: BP 133/87; PULSE 121; RESP 16; TEMP 36.6; O2SAT 98
[2022-05-03 14:58] LABS: Basophils Absolute Auto 0.02 K/mm3 (0.00-0.10); Basophils Percent Auto 0.3 % (0.0-1.0); Eosinophils Absolute Auto 0.04 K/mm3 (0.02-0.50); Eosinophils Percent Auto 0.6 % (1.0-6.0); Hematocrit 50.3 % (40.0-54.0); Hemoglobin 17.4 g/dL (14.0-18.0); Immature Granulocyte Absolute 0.03 K/mm3 (0.00-0.00); Immature Granulocyte Percent A 0.5 % (0.0-0.0); Lymphocytes Absolute Auto 1.47 K/mm3 (1.10-4.50); Lymphocytes Percent Auto 23.3 % (18.0-42.0); Mean Corpuscular HGB Conc 34.6 g/dL (32.0-36.0); Mean Corpuscular Hemoglobin 29.7 pg (27.0-31.0); Mean Corpuscular Volume 85.8 fL (78.0-102.0); Mean Platelet Volume 10.2 fl (8.7-11.0); Monocytes Absolute Auto 0.79 K/mm3 (0.10-0.90); Monocytes Percent Auto 12.5 % (2.0-11.0); Neutrophils Percent Auto 62.8 % (50.0-70.0); Platelet Count Result 313 K/mm3 (150-420); Red Blood Count 5.86 M/mm3 (4.70-6.10); Red Cell Distribution Width 12.7 % (11.6-14.4); White Blood Count 6.3 K/mm3 (4.8-10.8)
[2022-05-03 15:14] LABS: Alanine Aminotransferase 103 U/L (16-63); Albumin Level 3.9 g/dL (3.4-5.0); Alkaline Phosphatase 111 U/L (46-116); Anion Gap 10 mmol/L (8-16); Aspartate Amino Transferase 62 U/L (15-37); Bilirubin,Total 1.6 mg/dL (0.00-1.00); Blood Urea Nitrogen 15 mg/dL (7-18); Carbon Dioxide 23 mmol/L (21-32); Chloride 105 mmol/L (98-108); Estimated Glomerular Filt Rate > 60; Glucose 141 mg/dL (70-99); Magnesium 2.3 mg/dL (1.8-2.4); Osmolality Calculated 288 mOsm/kg (285-295); Potassium 3.5 mmol/L (3.5-5.1); Sodium 138 mmol/L (136-145); Total Protein 8.1 g/dL (6.4-8.2)
[2022-05-03 15:17] LABS: Lactic Acid Reflex 2.2 mmol/L (0.4-2.0)
[2022-05-03] MEDS: SODIUM CHLORIDE 0.9% IV 1,000 ML 999 ML IV CONT (15:30)
[2022-05-03 17:01] VITALS: BP 113/93; PULSE 100; RESP 18; TEMP 36.6; O2SAT 100
== END 2022-05-03 17:05 | disposition home or self-care (01) ==
PROVIDERS: Emergency Provider Emergency Medicine
DX: E86.0 Dehydration (principal)
CPT/HCPCS: 36415; 80053; 83605; 83735; 85025; 96360; 99283; J7030